=== PATIENT | male | born 1965 | race Caucasian/White ===

== ENCOUNTER → 2016-11-07 | Outpatient (CLI) | payer BC | END | disposition home or self-care (01) | LOC: GMA 10:34 | PROVIDERS: ATTEND Nurse Practitioner Family | DX: R53.81 Other malaise (principal) ==

== ENCOUNTER → 2017-07-27 | Outpatient (CLI) | payer BC ==
--- NOTE | 2017-07-27 22:42 | US ---
EXAM DESCRIPTION: Venous,Lower Extremity LT CLINICAL HISTORY: 52 years Male LW EXT SWELLING COMPARISON: None. TECHNIQUE: Duplex and color Doppler imaging performed to evaluate the left lower extremity deep venous structures. Compression imaging and augmentation imaging performed. FINDINGS: No thrombus is identified in the deep venous structures imaged. There is normal flow, compressibility, and augmentation throughout. IMPRESSION: No DVT is identified. Electronically signed by: Raul Saucedo 07/27/2017 10:41 PM CDT
== END ==
LOC: US 15:53
PROVIDERS: ATTEND Family Medicine
DX: R60.9 Edema, unspecified (principal)

== ENCOUNTER → 2018-03-03 | Outpatient (CLI) | payer BC | LOC: GMAM 10:36 | PROVIDERS: ATTEND Family Medicine | DX: Z12.5 Encounter for screening for malignant neoplasm of prostate (principal) ==

== ENCOUNTER 2020-03-15 16:03 | Emergency (ER) | payer BC ==
[2020-03-15] MEDS ORDERED: SODIUM CHLORIDE 0.9% 1000ML 1,000 ML IVS ONE (16:45)
[2020-03-15] MEDS ORDERED: ONDANSETRON INJ 4 MG/2 ML VIAL IV ONE (16:46)
--- NOTE | 2020-03-15 17:12 | RAD ---
EXAM: XR Chest, 1 View CLINICAL HISTORY: The patient is 54 years old and is Male; cough s/p covid TECHNIQUE: Single view of the chest. COMPARISON: No relevant prior studies available. FINDINGS: Lungs: Bilateral peripheral pulmonary opacities suspicious for pneumonia. Pleural space: No pleural effusion or pneumothorax. Heart: Unremarkable. No cardiomegaly. Mediastinum: Unremarkable. Bones/joints: Vertebral osteophytes. Mild scoliosis. IMPRESSION: Bilateral peripheral pulmonary opacities suspicious for pneumonia. Electronically signed by: Kathrine Wilcox MD 03/15/2020 5:11 PM [employer]
[2020-03-15] MEDS ORDERED: ALBUTEROL SULFATE 2.5 MG/3 ML VIAL NEB ONE (18:27)
[2020-03-15] MEDS ORDERED: IPRATROPIUM/ALBUTEROL 3 ML VIAL NEB ONE (18:27)
--- NOTE | 2020-03-15 18:49 | ED.PDOC ---
History of Present Illness - General Chief Complaint: General Stated Complaint: chills, body ache, headache Time Seen by Provider: 03/15/20 16:13 Source: patient, RN notes reviewed, Vital Signs reviewed, family - Exam Limitations: no limitations - History of Present Illness Initial Comments: Patient was diagnosed with Covid 2 weeks ago. He presents today with worsening shortness of breath, generalized malaise and fatigue. Patient feels like he is dehydrated. His weakness and fatigue is worse with exertion. His shortness of breath is worse with exertion or when he lays down flat. Patient denies any fever or chills. Patient denies any headache, chest pain, nausea, vomiting, diarrhea. The only thing that makes the malaise and fatigue as well as shortness of breath better is rest. Timing/Duration: getting worse, other - 4-5 days but significantly worse x 24 hours. Severity: moderate Improving Factors: rest Worsening Factors: movement Associated Symptoms: malaise, nausea/vomiting - nausea only, shortness of breath, weakness Allergies/Adverse Reactions: Allergies NO KNOWN ALLERGY Allergy (Verified 03/15/20 16:26) Home Medications: Ambulatory Orders Amlodipine Besylate [Norvasc] 2.5 mg PO DAILY 12/26/13 Lisinopril & Hydrochlorothiazi [Lisinopril/Hctz 10-12.5 mg] 1 tab PO DAILY 12/26/13 Albuterol Sulfate Nebs [Proventil Nebs] 2.5 mg INH Q4H #30 vial 03/15/20 Azithromycin [Zithromax Z-Huey] 250 mg PO DAILY #6 tab 03/15/20 Methylprednisolone [Medrol Dose Huey] 4 mg PO DAILY 6 Days #21 tab 03/15/20 Review of Systems - Review of Systems Constitutional: States: see HPI, malaise, weakness. Denies: chills, fever EENTM: States: no symptoms reported. Denies: eye pain, blurred vision, double vision, throat swelling Respiratory: States: see HPI, short of breath. Denies: cough, stridor, wheezing Cardiology: Denies: no symptoms reported, chest pain, palpitations, syncope Gastrointestinal/Abdominal: States: see HPI, nausea. Denies: abdominal pain, diarrhea, vomiting Musculoskeletal: States: no symptoms reported. Denies: back pain, joint pain, joint swelling, neck pain Skin: States: no symptoms reported. Denies: change in color, rash Neurological: States: see HPI, weakness. Denies: headache, numbness, tingling, tremors Endocrine: States: no symptoms reported. Denies: increased hunger, increased thirst, increased urine Hematologic/Lymphatic: States: no symptoms reported. Denies: blood clots, easy bleeding All other Systems: Reviewed and Negative Past Medical History (General) - Patient Medical History Hx Seizures: No Hx Stroke: No Hx Dementia: No Hx Asthma: No Hx of COPD: No Hx Cardiac Disorders: No Hx Congestive Heart Failure: No Hx Pacemaker: No Hx Hypertension: Yes Hx Thyroid Disease: No Hx Diabetes: No Hx Gastroesophageal Reflux: No Hx Renal Disease: No Hx Cancer: No Hx of HIV: No Hx Hepatitis C: No Hx MRSA: No Surgical History: tonsillectomy - Social History Hx Tobacco Use: No Hx Alcohol Use: Yes Family Medical History - Family History Mother Family History: Unknown Living Status: Unknown Physical Exam - Physical Exam General Appearance: Alert, Anxious, Well Developed, Well Groomed, Well Hydrated, Well Nourished Eye Exam: bilateral normal Ears, Nose, Throat: hearing grossly normal, normal ENT inspection, normal pharynx - except dry MM Neck: non-tender, full range of motion, supple Respiratory: respiratory distress - mild, decreased breath sounds, rales - bilateral bases, rhonchi, wheezing Cardiovascular/Chest: normal peripheral pulses, no edema, no gallop, no JVD, tachycardia Peripheral Pulses: radial,right: 2+, radial,left: 2+ Gastrointestinal/Abdominal: normal bowel sounds, non tender, soft Back Exam: normal inspection, no CVA tenderness, no vertebral tenderness Extremity: normal range of motion, non-tender, normal inspection 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 03/15/20 19:06 Patient markedly improved after IV fluids and nebulizer. Heart rate is now down to 100. Patient denies any further shortness of breath. Chest x-ray shows bilateral pneumonia. I suspect the D-dimer is elevated secondary to pneumonia and the Covid. I seriously doubt PE. Though patient has risk factors there are other more plausible explanations for his initial tachycardia. Plan on discharge home with steroids, antibiotics and albuterol. I discussed the plan of care with the patient and his and they voiced understanding and agreement. Jose F Valle M.D. #[id number] - Results/Orders Results/Orders: EXAM: XR Chest, 1 View CLINICAL HISTORY: The patient is 54 years old and is Male; cough s/p covid TECHNIQUE: Single view of the chest. COMPARISON: No relevant prior studies available. FINDINGS: Lungs: Bilateral peripheral pulmonary opacities suspicious for pneumonia. Pleural space: No pleural effusion or pneumothorax. Heart: Unremarkable. No cardiomegaly. Mediastinum: Unremarkable. Bones/joints: Vertebral osteophytes. Mild scoliosis. IMPRESSION: Bilateral peripheral pulmonary opacities suspicious for pneumonia. Electronically signed by: Kathrine Wilcox MD 03/15/2020 5:11 03/15/20 16:32 Isolation:Airborne ONCE 03/15/20 16:45 Pulse Ox, Continuous Monitoring STAT 03/16/20 16:45 Pulse Ox, Continuous Monitoring STAT 03/17/20 16:45 Pulse Ox, Continuous Monitoring STAT Laboratory Results - last 24 hr 03/15/20 03/15/20 03/15/20 16:51 16:51 16:51 WBC 9.2 RBC 4.93 Hgb 15.5 Hct 44.1 MCV 89.3 MCH 31.4 H MCHC 35.1 RDW 12.1 Plt Count 285 MPV 9.0 Absolute Neuts (auto) 7.90 H Absolute Lymphs (auto) 0.50 L Absolute Monos (auto) 0.70 Absolute Eos (auto) 0.10 Absolute Basos (auto) 0.10 Neutrophils % 85.1 H Lymphocytes % 5.4 L Monocytes % 7.9 Eosinophils % 0.6 L Basophils % 1.0 PTT (SP) 29.9 D-Dimer, Quantitative 1340.0 H* Sodium 133 L Potassium 3.7 Chloride 90 L Carbon Dioxide 26 Anion Gap 20.7 H BUN 15 Creatinine 0.91 BUN/Creatinine Ratio 16.5 Random Glucose 99 Serum Osmolality 267.2 L Calcium 8.8 Magnesium 2.0 Total Bilirubin 0.8 AST 41 ALT 70 H Alkaline Phosphatase 62 LD Total 252 H Creatine Kinase 27 L C-Reactive Protein 17 H* Serum Total Protein 7.7 Albumin 3.3 Globulin 4.4 H Albumin/Globulin Ratio 0.8 L Vital Signs 03/15/20 16:19 Temperature 98.8 F Pulse Rate 120 H Pulse Rate [ 120 H Left Radial] Respiratory 18 Rate Blood Pressure 147/98 [Left Arm] O2 Sat by Pulse 96 Oximetry Departure - Departure Clinical Impression: Bilateral pneumonia, Tachycardia Time of Disposition: 19:10 Disposition: Discharge to Home or Self Care Condition: Fair Departure Forms: ED Discharge - Pt. Copy, Patient Portal Self Enrollment Instructions: Pneumonia, Adult (DC), Dehydration, Adult (DC) Referrals: Dale Gill MD [Primary Care Provider] - 1-5 Days Prescriptions: Methylprednisolone [Medrol Dose Huey] 4 mg PO DAILY 6 Days #21 tab Albuterol Sulfate Nebs [Proventil Nebs] 2.5 mg INH Q4H #30 vial Azithromycin [Zithromax Z-Huey] 250 mg PO DAILY #6 tab Home Medications: Ambulatory Orders Amlodipine Besylate [Norvasc] 2.5 mg PO DAILY 12/26/13 Lisinopril & Hydrochlorothiazi [Lisinopril/Hctz 10-12.5 mg] 1 tab PO DAILY 12/26/13 Albuterol Sulfate Nebs [Proventil Nebs] 2.5 mg INH Q4H #30 vial 03/15/20 Azithromycin [Zithromax Z-Huey] 250 mg PO DAILY #6 tab 03/15/20 Methylprednisolone [Medrol Dose Huey] 4 mg PO DAILY 6 Days #21 tab 03/15/20
[2020-03-15 19:29] VITALS: BP 127/74; TEMP 98; O2SAT 92
== END 2020-03-15 19:28 | disposition home or self-care (01) ==
LOC: ER 16:03
DX: U07.1 COVID-19 (principal); J12.89 Other viral pneumonia; R00.0 Tachycardia, unspecified; I10 Essential (primary) hypertension; Z79.899 Other long term (current) drug therapy
CPT/HCPCS: 36415; 71045; 80053; 82550; 83615; 83735; 85025; 85379; 85730; 86140; 94640; J2405; J7030; J7611; J7620

== ENCOUNTER → 2020-03-19 | Outpatient (CLI) | payer BC | LOC: GMAM 10:40 | PROVIDERS: ATTEND Family Medicine | DX: B34.2 Coronavirus infection, unspecified (principal); R71.8 Other abnormality of red blood cells; R09.02 Hypoxemia ==

== ENCOUNTER → 2020-03-28 | Outpatient (CLI) | payer BC | LOC: GMAM 10:57 | PROVIDERS: ATTEND Family Medicine | DX: U07.1 COVID-19 (principal) ==

== ENCOUNTER → 2020-04-30 | Outpatient (CLI) | payer BC | LOC: GMAM 10:55 | PROVIDERS: ATTEND Family Medicine | DX: Z12.5 Encounter for screening for malignant neoplasm of prostate (principal) ==